=== PATIENT | female | born 1980 | race African-American/Black ===

== ENCOUNTER 2023-02-11 17:13 | Emergency (ER) | payer SELFPAY ==
[2023-02-11 17:30] VITALS: BP 170/96; PULSE 99; RESP 20; TEMP 97.9
--- NOTE | 2023-02-11 17:49 | ED ---
General Adult HPI - General Chief complaint: Recheck/Abnormal Lab/Rx Stated complaint: throat pain Time Seen by Provider: 02/11/23 17:38 Source: patient, family, RN notes reviewed Mode of arrival: ambulatory Limitations: no limitations - History of Present Illness Initial comments: Patient is a pleasant 42-year-old female presenting to the emergency department with concern for sore throat. Onset of symptoms was under 2 weeks ago. Patient did have negative strep test however was still treated with amoxicillin for 5 days without improvement of symptoms. Patient does have discomfort mostly with swallowing. No dyspnea. Patient does have cough. Patient does have congestion and burning up around her nose. Patient does have decreased appetite and decreased oral intake. No abdominal pain. Patient has had chills and myalgias. - Related Data Previous Rx's Medication Instructions Recorded Azithromycin [Zithromax Z Pack] 250 mg PO DAILY #6 tab 02/11/23 predniSONE [Deltasone] 20 mg PO BID #10 tab 02/11/23 Allergies Allergy/AdvReac Type Severity Reaction Status Date / Time No Known Allergies Allergy Verified 02/11/23 17:30 Review of Systems ROS Statement: Those systems with pertinent positive or pertinent negative responses have been documented in the HPI. ROS Other: All systems not noted in ROS Statement are negative. Constitutional: Reports: chills Eyes: Denies: eye pain ENT: Reports: throat pain Respiratory: Reports: cough. Denies: dyspnea Cardiovascular: Denies: chest pain Endocrine: Reports: fatigue Gastrointestinal: Denies: abdominal pain Genitourinary: Denies: urgency Musculoskeletal: Denies: back pain Skin: Denies: rash Neurological: Denies: weakness Past Medical History Past Medical History: No Reported History History of Any Multi-Drug Resistant Organisms: None Reported Past Surgical History: Cholecystectomy Past Psychological History: No Psychological Hx Reported Smoking Status: Current every day smoker Past Alcohol Use History: Occasional Past Drug Use History: None Reported General Exam Limitations: no limitations General appearance: alert, in no apparent distress Head exam: Present: normocephalic Eye exam: Present: normal appearance ENT exam: Present: normal oropharynx Neck exam: Present: normal inspection. Absent: tenderness, meningismus, lymphadenopathy Respiratory exam: Present: normal lung sounds bilaterally. Absent: respiratory distress, wheezes Cardiovascular Exam: Present: regular rate, normal rhythm GI/Abdominal exam: Present: soft. Absent: tenderness Extremities exam: Present: normal inspection. Absent: pedal edema, calf tenderness Neurological exam: Present: alert Psychiatric exam: Present: normal affect, normal mood Skin exam: Present: normal color Course Vital Signs 02/11/23 17:25 Temperature 97.9 F Pulse Rate 99 Respiratory 20 Rate Blood Pressure 170/96 O2 Sat by Pulse 100 Oximetry Medical Decision Making - Medical Decision Making Was pt. sent in by a medical professional or institution (LAMBERTO Santos, FURNITURE DECALS INSPECTOR, urgent care, hospital, or jail...) When possible be specific @ -No Did you speak to anyone other than the patient for history (EMS, parent, family, police, friend...)? What history was obtained from this source @ -No Did you review nursing and triage notes (agree or disagree)? Why? @ -I reviewed and agree with nursing and triage notes Were old charts reviewed (outside hosp., previous admission, EMS record, old EKG, old radiological studies, urgent care reports/EKG's, jail records)? Report findings @ -No old charts were reviewed Differential Diagnosis (chest pain, altered mental status, abdominal pain women, abdominal pain men, vaginal bleeding, weakness, fever, dyspnea, syncope, headache, dizziness, GI bleed, back pain, seizure, CVA, palpatations, mental health)? @ -not applicable EKG interpreted by me (3pts min.). @ -As above X-rays interpreted by me (1pt min.). @ -Chest x-ray shows no acute process CT interpreted by me (1pt min.). @ -None done U/S interpreted by me (1pt. min.). @ -None done What testing was considered but not performed or refused? (CT, X-rays, U/S, labs)? Why? @ -None What meds were considered but not given or refused? Why? @ -None Did you discuss the management of the patient with other professionals (professionals i.e. LAMBERTO Santos, FURNITURE DEC[employer] INSPECTOR, lab, RT, psych nurse, social science research assistant, radiotelegraph operator servicer, teacher, head correction officer, manager case management)? Give summary @ -No Was smoking cessation discussed for >3mins.? @ -No Was critical care preformed (if so, how long)? @ -No Were there social determinants of health that impacted care today? How? (Homelessness, low income, unemployed, alcoholism, drug addiction, transportation, low edu. Level, literacy, decrease access to med. care, fdc, rehab)? @ -No Was there de-escalation of care discussed even if they declined (Discuss DNR or withdrawal of care, Hospice)? DNR status @ -No What co-morbidities impacted this encounter? (DM, HTN, Smoking, COPD, CAD, Cancer, CVA, ARF, Chemo, Hep., AIDS, mental health diagnosis, sleep apnea, morbid obesity)? @ -None Was patient admitted / discharged? Hospital course, mention meds given and route, prescriptions, significant lab abnormalities, going to OR and other pertinent info. @ -Patient reevaluated. Patient and family updated. Exact etiology is unclear. Patient does have some tenderness on reevaluation of the sinuses and complains of congestion and burning. Patient will be covered and about X and steroids and recommended close follow-up with primary care physician. Undiagnosed new problem with uncertain prognosis? @ -No Drug Therapy requiring intensive monitoring for toxicity (Heparin, Nitro, Insulin, Cardizem)? @ -No Were any procedures done? @ -No Diagnosis/symptom? @ -Sinusitis Acute, or Chronic, or Acute on Chronic? @ -Acute Uncomplicated (without systemic symptoms) or Complicated (systemic symptoms)? @ -default Side effects of treatment? @ -No Exacerbation, Progression, or Severe Exacerbation? @ -No Poses a threat to life or bodily function? How? (Chest pain, [place], MA, pneumonia, PE, COPD, DKA, ARF, appy, cholecystitis, CVA, Diverticulitis, Homicidal, Suicidal, threat to staff... and all critical care pts) @ -No - Lab Data Lab Results 02/11/23 02/11/23 02/11/23 Range/Units 18:14 18:14 18:14 Heterophile Antibody Negative (Negative) Influenza Type A (PCR) Not Detected (Not Detectd) Influenza Type B (PCR) Not Detected (Not Detectd) RSV (PCR) Not Detected (Not Detectd) SARS-CoV-2 (PCR) Not Detected (Not Detectd) Group A Strep (PCR) NOT DETECTED (Not Detectd) Disposition Clinical Impression: Sinusitis Disposition: HOME SELF-CARE Condition: Stable Instructions (If sedation given, give patient instructions): Sinusitis (ED) Additional Instructions: Please do follow-up with primary care physician in the next day or 2 for recheck. Return for difficulty breathing, fevers, worsening or changing symptoms or other concerns. [id number] Tylenol and Motrin as needed. Prescriptions: predniSONE [Deltasone] 20 mg PO BID #10 tab Azithromycin [Zithromax Z Pack] 250 mg PO DAILY #6 tab Is patient prescribed a controlled substance at d/c from ED?: No Referrals: Dilan Hutchins MD [STAFF PHYSICIAN] - 1-2 days Time of Disposition: 19:56
--- NOTE | 2023-02-11 18:33 | XR ---
EXAMINATION TYPE: XR chest 2V DATE OF EXAM: 02/11/2023 COMPARISON: NONE HISTORY: Short of breath. Cough TECHNIQUE: 2 views FINDINGS: Heart and mediastinum are normal. Lungs are clear. Diaphragm is normal. Bony thorax appears normal. IMPRESSION: Normal chest
[2023-02-11] MEDS ORDERED: LORazepam 1 MG TAB PO STA (19:52)
[2023-02-11] MEDS ORDERED: ACETAMINOPHEN TAB 500 MG TAB PO STA (19:52)
[2023-02-11] MEDS ORDERED: IBUPROFEN 400 MG TAB PO STA (19:52)
== END 2023-02-11 20:14 | disposition home or self-care (01) ==
LOC: EC 17:13
DX: J32.9 Chronic sinusitis, unspecified (principal); F17.200 Nicotine dependence, unspecified, uncomplicated; Z20.822 Contact with and (suspected) exposure to COVID-19
CPT/HCPCS: 36415; 71046; 86308; 87636; 87651; 99283